=== PATIENT | female | born 1975 | race Caucasian/White ===

== ENCOUNTER 2023-07-03 02:38 | Emergency (ER) | payer MEDICAID, SELFPAY ==
[2023-07-03 02:39] VITALS: BP 152/108; PULSE 100; RESP 18; TEMP 36.6; O2SAT 96; BMI 29.0
--- NOTE | 2023-07-03 03:06 | XRR_ITS ---
PROCEDURE INFORMATION: Exam: XR Abdomen Exam date and time: 07/03/2023 3:14 AM Age: 47 years old Clinical indication: Abdominal pain; Localized; Patient HX: Lower abd pain- pain to ovaries according to patient; Additional info: Abd pain, constipation TECHNIQUE: Imaging protocol: Radiologic exam of the abdomen. Views: Frontal supine view of the abdomen. 1 View. COMPARISON: CR (CHEST, ) 07/03/2023 3:10 AM FINDINGS: Gastrointestinal tract: Normal. No bowel dilation. Bones/joints: Unremarkable. XR/XR abdomen 1V* [id number] IMPRESSION: No acute findings.
--- NOTE | 2023-07-03 03:06 | XRR_ITS ---
PROCEDURE INFORMATION: Exam: XR Chest Exam date and time: 07/03/2023 3:10 AM Age: 47 years old Clinical indication: Chest wall pain; Patient HX: Anterior middle chest pain TECHNIQUE: Imaging protocol: Radiologic exam of the chest. Views: 1 view. COMPARISON: No relevant prior studies available. FINDINGS: Lungs: Unremarkable. No consolidation. Pleural spaces: Unremarkable. No pleural effusion. No pneumothorax. Heart/Mediastinum: Unremarkable. No cardiomegaly. Bones/joints: Unremarkable. XR/XR chest 1V portable [id number] IMPRESSION: No acute findings.
[2023-07-03 03:11] VITALS: BP 150/128; PULSE 101; RESP 18; O2SAT 97
[2023-07-03 03:13] LABS: Basophils % 0.4 %; Eosinophils # 0.1 10^3/uL (0.0-0.8); Hematocrit 40.2 % (36-47); Lymphocytes # 2.5 10^3/uL (0.8-4.8); Lymphocytes % 24.7 %; Mean Corpuscular HGB Conc 31.3 g/dL (30-55); Mean Corpuscular Hemoglobin 26.5 pg (27-33); Mean Corpuscular Volume 84.5 fl (85-98); Mean Platelet Volume 10.6 fL (7.4-10.4); Monocytes # 0.8 10^3/uL (0.2-0.9); Monocytes % 7.9 %; Neutrophils # 6.66 10^3/uL (1.8-7.7); Neutrophils % 65.6 %; Nucleated Red Blood Cells % 0 %; Platelet Count 363 10^3/cmm (157-399); Red Blood Count 4.76 10^6/uL (3.85-5.65); Red Cell Distribution Width 14.7 % (12.1-15.1); White Blood Count 10.15 10^3/uL (3.29-11.43)
--- NOTE | 2023-07-03 03:13 | W.ED.GENADLT ---
HPI - General Adult General: Chief complaint: General Medical Stated complaint: CP Time Seen by Provider: 07/03/23 02:43 History of Present Illness: Patient presents to the ER with complaints of chest pain. Patient started new medicine called hydroxyzine about 3 days ago. This met when that same time the chest pain started. Chest pain is worsened when she takes a big deep breath and radiates into her back. Patient denies any nausea vomiting diaphoresis shortness of breath etc. Review of Systems General: Reports: 10 or more systems reviewed and unremarkable except in HPI and below [facility] ED Female Reproductive History: Date of last menstrual period: 06/19/23 Physical Exam Const: COMMON NORMALS: no acute distress, average body habitus, patient oriented x3, no limitations, healthy appearing, alert and well nourished HENMT: COMMON NORMALS: normocephalic, atraumatic, hearing grossly normal bilaterally, external ears normal, Normal external nose present and moist oral mucous membranes HEAD & SCALP: normocephalic and atraumatic NOSE: Normal external nose present EXTERNAL EAR: Yes external ears normal Eye: COMMON NORMALS: Equal, round and reactive pupils present, EOMs intact bilaterally, conjunctivae normal and no scleral icterus CONJUNCTIVA: Yes conjunctivae normal PUPIL: Yes Equal, round and reactive pupils present Neck/C-Spine: COMMON NORMALS: no JVD Chest: COMMONS NORMALS: normal inspection of the chest and normal palpation of entire chest wall Resp: COMMON NORMALS: normal respiratory effort, No retractions, No use of accessory muscles and clear to auscultation bilaterally AUSCULTATION: clear to auscultation bilaterally Cardio: COMMON NORMALS: no JVD, regular rate, regular rhythm, S1 normal heart sound present, S2 normal heart sound present, No gallops present (Cardio), No clicks present (Cardio), No murmurs present (Cardio) and No rub (Cardio) RATE: regular rate RHYTHM: regular rhythm HEART SOUNDS: S1 normal heart sound present and S2 normal heart sound present GI: COMMON NORMALS: Normal to inspection, nondistended, normoactive bowel sounds present, Soft to palpation, non-tender, No hepatosplenomegaly present and no masses PALPATION: Yes Soft to palpation and Yes No hepatosplenomegaly present : COMMON NORMALS: Yes no CVA tenderness BLADDER/KIDNEY EXAM: Yes no CVA tenderness Back/Pelvis: COMMON NORMALS: no CVA tenderness Neuro: COMMON NORMALS: patient oriented x3 SENSORIUM/ORIENTATION: Yes alert Course Vital Signs: Vital signs: Vital Signs Temperature 97.9 F 07/03/23 02:39 Pulse Rate 77 07/03/23 04:23 Respiratory Rate 16 07/03/23 04:23 Blood Pressure 162/113 07/03/23 04:23 Pulse Oximetry 95 07/03/23 04:23 Oxygen Delivery Me thod Room Air 07/03/23 03:11 MDM - General Adult Medical Decision Making Patient presents to the ER with complaints of chest pain and thinks she may be having a reaction to the medicine she took. Patient also has a history of atrial flutter. Patient was worked up in normal standard chest pain fashion with lab work, chest x-ray, and EKG, all of which were benign. Patient also complained of abdominal pain and she had a abdominal x-ray which was negative. Patient be discharged home with findings of abdominal pain and chest pain noncardiac in nature. Differential Diagnosis Medicine reaction, chest pain, upper respiratory infection, cough Medical Records I reviewed the patient's medical records. Lab Data I reviewed the patient's lab results. 07/03/23 03:00 07/03/23 03:00 Radiology Impressions Abdomen X-Ray 07/03/23 03:06 IMPRESSION: No acute findings. Chest X-Ray 07/03/23 03:06 IMPRESSION: No acute findings. Laboratory Results WBC 10.15 10^3/uL (3.29-11.43) 07/03/23 03:00 RBC 4.76 10^6/uL (3.85-5.65) 07/03/23 03:00 Hgb 12.60 g/dL (11.27-16.99) 07/03/23 03:00 Hct 40.2 % (36-47) 07/03/23 03:00 MCV 84.5 fl (85-98) L 07/03/23 03:00 MCH 26.5 pg (27-33) L 07/03/23 03:00 MCHC 31.3 g/dL (30-55) 07/03/23 03:00 RDW 14.7 % (12.1-15.1) 07/03/23 03:00 Plt Count 363 10^3/cmm (157-399) 07/03/23 03:00 MPV 10.6 fL (7.4-10.4) H 07/03/23 03:00 Neut % (Auto) 65.6 % 07/03/23 03:00 Lymph % (Auto) 24.7 % 07/03/23 03:00 Wilkin % (Auto) 7.9 % 07/03/23 03:00 Eos % (Auto) 1.0 % 07/03/23 03:00 Baso % (Auto) 0.4 % 07/03/23 03:00 Neut # (Auto) 6.66 10^3/uL (1.8-7.7) 07/03/23 03:00 Lymph # (Auto) 2.5 10^3/uL (0.8-4.8) 07/03/23 03:00 Wilkin # (Auto) 0.8 10^3/uL (0.2-0.9) 07/03/23 03:00 Eos # (Auto) 0.1 10^3/uL (0.0-0.8) 07/03/23 03:00 Baso # (Auto) 0.0 10^3/uL (0.0-0.1) 07/03/23 03:00 Nucleated RBC % (auto) 0 % 07/03/23 03:00 Nucleated RBCs # 0.0 /100WBC 07/03/23 03:00 Sodium 137 mmol/L (136-145) 07/03/23 03:00 Potassium 3.7 mmol/L (3.5-5.1) 07/03/23 03:00 Chloride 101 mmol/L (98-107) 07/03/23 03:00 Carbon Dioxide 28 mmol/L (22-29) 07/03/23 03:00 Anion Gap 11.7 (5-19) 07/03/23 03:00 BUN 9 mg/dL (6-20) 07/03/23 03:00 Creatinine 0.9 mg/dL (0.5-0.9) 07/03/23 03:00 GFR Calculation 67.7 mL/min (90-130) L 07/03/23 03:00 Glucose 179 mg/dL (65-115) H 07/03/23 03:00 Calculated Osmolality 287 mOsm/kg (285-295) 07/03/23 03:00 Calcium 9.4 mg/dL (8.5-10.5) 07/03/23 03:00 Magnesium 1.9 mg/dL (1.7-2.3) 07/03/23 03:00 Total Bilirubin 0.2 mg/dL (0.15-1.2) 07/03/23 03:00 AST 19 U/L (0-32) 07/03/23 03:00 ALT 31 U/L (0-33) 07/03/23 03:00 Alkaline Phosphatase 114 U/L (35-105) H 07/03/23 03:00 Troponin T Baseline 7 ng/L (0-10) 07/03/23 03:00 Total Protein 7.5 g/dL (6.6-8.7) 07/03/23 03:00 Albumin 4.0 g/dL (3.5-5.2) 07/03/23 03:00 Globulin 3.5 g/dL (1.3-4.6) 07/03/23 03:00 Urine Color Colorless (Yellow) 07/03/23 03:04 Urine Appearance Clear (CLEAR) 07/03/23 03:04 Urine pH 5 (5-7) 07/03/23 03:04 Ur Specific [place] 1.005 (1.005-1.030) 07/03/23 03:04 Urine Protein Neg (Negative) 07/03/23 03:04 Urine Glucose (UA) Trace (Normal) H 07/03/23 03:04 Urine Ketones Negative (Negative) 07/03/23 03:04 Urine Blood Neg (Negative) 07/03/23 03:04 Urine Nitrate Negative (Negative) 07/03/23 03:04 Urine Bilirubin Neg (Negative) 07/03/23 03:04 Urine Urobilinogen Neg mg/dL (Negative) 07/03/23 03:04 Ur Leukocyte Esterase Negative (Negative) 07/03/23 03:04 All radiology interpretation(s) finalized by discharge EKG Data EKG 1: I personally reviewed and interpreted this EKG as follows: EKG interpretation date: 07/03/23 EKG interpretation time: 02:48 Prior EKG tracings: not available for review Interpretation: EKG showed ventricular rate 90 bpm, OK interval 173, QRS duration 95, QTc of 394, sinus rhythm, incomplete right bundle branch block, left anterior fascicular block, Computer generated interpretation: Abdomen X-Ray 07/03/23 03:06 IMPRESSION: No acute findings. Chest X-Ray 07/03/23 03:06 IMPRESSION: No acute findings. Discharge Plan Discharge Patient Disposition: Home Clinical Impression: Chest pain, non-cardiac Abdominal pain Qualifiers: Abdominal location: unspecified location Qualified Code(s): R10.9 - Unspecified abdominal pain Condition: Stable Discharge Orders: Discharge ED (Routine); Ordered 07/03/23 Ordered By: Brandan Cast Referrals: Zac Brannon [Primary Care Provider] - 1 week Patient Instructions: Chest Pain (ED), Abdominal Pain (ED) Activity Restrictions/Additional Instructions: Please follow-up with your family practice physician in the next 7 to 10 days or sooner as needed for further evaluation and treatment. Coding Level of Care Code ED E Learning Designer for Jordan De Paz
[2023-07-03 03:22] LABS: Add Urine Microscopic? NO; Charge for UA Resulting for Rev
[2023-07-03 03:24] LABS: Bilirubin Urine Neg (Negative); Blood Urine Neg (Negative); Glucose Urine UA Trace (Normal); Ketones Urine Negative (Negative); Leukocyte Esterase Urine Negative (Negative); Nitrate Urine Negative (Negative); Protein Urine Neg (Negative); Specific Gravity, Urine 1.005 (1.005-1.030); Urine Appearance Clear (CLEAR); Urine Color Colorless (Yellow); Urobilinogen Urine Neg (Negative); pH Urine 5 (5-7)
[2023-07-03 03:30] LABS: Troponin(5th) Baseline 7 ng/L (0-10)
[2023-07-03 03:33] LABS: Alanine Aminotransferase 31 U/L (0-33); Alkaline Phosphatase 114 U/L (35-105); Anion Gap 11.7 (5-19); Aspartate Amino Transferase 19 U/L (0-32); Blood Urea Nitrogen 9 mg/dL (6-20); Calcium 9.4 mg/dL (8.5-10.5); Carbon Dioxide 28 mmol/L (22-29); Chloride 101 mmol/L (98-107); Globulin 3.5 g/dL (1.3-4.6); Glomerular Filtration Rate 67.7 mL/min (90-130); Glucose 179 mg/dL (65-115); Magnesium 1.9 mg/dL (1.7-2.3); Osmolality Calculated 287 mOsm/kg (285-295); Potassium 3.7 mmol/L (3.5-5.1); Sodium 137 mmol/L (136-145); Total Bilirubin 0.2 mg/dL (0.15-1.2); Total Protein 7.5 g/dL (6.6-8.7)
[2023-07-03 04:23] VITALS: BP 162/113; PULSE 77; RESP 16; O2SAT 95
[2023-07-03 05:06] VITALS: BP 162/113; PULSE 77; RESP 16; TEMP 36.6; O2SAT 95
--- NOTE | 2023-07-03 09:06 | ECG_ITS ---
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 Measurements Intervals [place] Rate: 90 P: 37 ND: 173 QRS: -72 QRSD: 95 T: 14 QT: 346 QTc: 425 Interpretive Statements SINUS RHYTHM LOW QRS VOLTAGE IN PRECORDIAL LEADS [QRS DEFLECTION < 1.0 mV IN CHEST LEADS] S1-S2-S3 PATTERN, CONSISTENT WITH PULMONARY DISEASE, RVH, OR NORMAL VARIANT INCOMPLETE RIGHT BUNDLE BRANCH BLOCK [90+ ms QRS DURATION, TERMINAL R IN V1/V2, 40+ ms S IN I/aVL/V4/V5/V6] LEFT ANTERIOR FASCICULAR BLOCK [QRS AXIS <= -45, QR IN I, RS IN II] POSSIBLE ANTERIOR MYOCARDIAL INFARCTION , PROBABLY OLD [30 ms Q WAVE IN V3/V4, OR R < 0.2 mV IN V4] No previous ECG available for comparison Electronically Signed On 07-03-2023 9:21:11 CDT by Keenan Dennison M.D. [id number]
== END 2023-07-03 05:07 | disposition home or self-care (01) ==
PROVIDERS: Emergency Provider Emergency Medicine; PCP Family Medicine
DX: R10.9 Unspecified abdominal pain (principal); R07.89 Other chest pain
CPT/HCPCS: 71045; 74018; 80053; 81003; 83735; 84484; 85025; 93005; 99285

== ENCOUNTER 2023-07-15 02:20 | Emergency (ER) | payer MEDICAID, SELFPAY ==
[2023-07-15] VITALS (7 sets, daily range): BP systolic 149–174; BP diastolic 99–112; PULSE 77–86; RESP 17–30; TEMP 36.9; O2SAT 95–98; BMI 37.1
--- NOTE | 2023-07-15 02:28 | XRR_ITS ---
PROCEDURE INFORMATION: Exam: XR Chest Exam date and time: 07/15/2023 2:37 AM Age: 47 years old Clinical indication: Pain; Chest pressure; Additional info: Cp TECHNIQUE: Imaging protocol: Radiologic exam of the chest. Views: 1 view. COMPARISON: CR (CHEST, ) 07/03/2023 3:10 AM FINDINGS: Lungs: Unremarkable. No consolidation. Pleural spaces: Unremarkable. No pleural effusion. No pneumothorax. Heart/Mediastinum: Unremarkable. No cardiomegaly. Bones/joints: Unremarkable. XR/XR chest 1V portable [id number] IMPRESSION: No acute findings.
--- NOTE | 2023-07-15 02:28 | ECG_ITS ---
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 Measurements Intervals [place] Rate: 80 P: 31 MA: 168 QRS: -61 QRSD: 97 T: 10 QT: 378 QTc: 438 Interpretive Statements SINUS RHYTHM LEFT ANTERIOR FASCICULAR BLOCK [QRS AXIS <= -45, QR IN I, RS IN II] POSSIBLE ANTERIOR MYOCARDIAL INFARCTION , PROBABLY OLD [30 ms Q WAVE IN V3/V4, OR R < 0.2 mV IN V4] Compared to ECG 07/03/2023 02:48:25 Right ventricular hypertrophy no longer present Incomplete right bundle-branch block no longer present Myocardial infarct finding still present Electronically Signed On 07-15-2023 11:09:02 CDT by Keenan Dennison M.D. [id number]
[2023-07-15 02:43] LABS: Basophils % 0.4 %; Eosinophils # 0.1 10^3/uL (0.0-0.8); Eosinophils % 0.7 %; Hematocrit 37.5 % (36-47); Lymphocytes % 29.5 %; Mean Corpuscular HGB Conc 31.5 g/dL (30-55); Mean Corpuscular Hemoglobin 25.7 pg (27-33); Mean Corpuscular Volume 81.7 fl (85-98); Mean Platelet Volume 10.7 fL (7.4-10.4); Monocytes # 0.8 10^3/uL (0.2-0.9); Monocytes % 8.2 %; Neutrophils # 6.27 10^3/uL (1.8-7.7); Neutrophils % 60.9 %; Nucleated Red Blood Cells % 0 %; Platelet Count 361 10^3/cmm (157-399); Red Blood Count 4.59 10^6/uL (3.85-5.65); Red Cell Distribution Width 14.6 % (12.1-15.1); White Blood Count 10.28 10^3/uL (3.29-11.43)
[2023-07-15 03:07] LABS: Troponin(5th) Baseline < 6 ng/L (0-10)
[2023-07-15 03:19] LABS: Alanine Aminotransferase 26 U/L (0-33); Albumin Level 4.1 g/dL (3.5-5.2); Alkaline Phosphatase 119 U/L (35-105); Anion Gap 13.5 (5-19); Aspartate Amino Transferase 14 U/L (0-32); Blood Urea Nitrogen 12 mg/dL (6-20); Carbon Dioxide 27 mmol/L (22-29); Chloride 100 mmol/L (98-107); Globulin 2.8 g/dL (1.3-4.6); Glomerular Filtration Rate 67.7 mL/min (90-130); Glucose 128 mg/dL (65-115); Lipase 59 U/L (13-60); NT Pro B Type Natriuretic Pept 51 pg/mL (0-125); Osmolality Calculated 285 mOsm/kg (285-295); Potassium 3.5 mmol/L (3.5-5.1); Sodium 137 mmol/L (136-145); Total Bilirubin 0.3 mg/dL (0.15-1.2); Total Protein 6.9 g/dL (6.6-8.7)
[2023-07-15] MEDS: lidocaine 2% viscous 15 ML, aluminum-mag hydrox-simethicon 30 ML, sucralfate oral liq 1 GM PO (04:00)
[2023-07-15] MEDS: LORazepam 2 mg/mL INJ 1 mL 1 MG IVP (04:28)
--- NOTE | 2023-07-15 04:28 | ED_ITS ---
HPI - Chest Pain General: Chief Complaint: Chest Pain Stated Complaint: CP Time Seen by Provider: 07/15/23 02:26 History of Present Illness: 47-year-old female with no prior history of coronary disease. She was seen here 10 days ago with similar complaints of chest discomfort. She points to the left side of her chest. She notes that it hurts worse to take a deep breath in. She describes some shortness of breath and nausea. She does have a history of acid reflux for which she takes medicine, but this pain feels somewhat different. She denies significant cough or fever. Associated symptoms: Reports abdominal pain, dyspnea and nausea; Deny fever(s) or palpitations Review of Systems Const: Denies: fever(s) Card: Reports: chest pain; Denies: palpitations Resp: Reports: dyspnea; Denies: productive cough or non-productive cough GI: Reports: abdominal pain and nausea : Reports: difficulty voiding and dysuria Skin/Breast: Denies: rash Psych: Reports: anxiety Physical Exam Const: GENERAL APPEARANCE: anxious; not ill appearing and not frail appearing HENMT: COMMON NORMALS: normocephalic, atraumatic and Normal external nose present HEAD & SCALP: normocephalic and atraumatic FACE & SINUS: normal facial exam and face symmetric NOSE: Normal external nose present Eye: COMMON NORMALS: Equal, round and reactive pupils present and EOMs intact bilaterally PUPIL: Yes Equal, round and reactive pupils present Neck/C-Spine: GENERAL: Yes trachea midline Chest: CHEST: Yes Symmetrical chest wall rise and Yes tenderness (left anterior chest) Resp: COMMON NORMALS: normal respiratory effort, No retractions, No use of accessory muscles and clear to auscultation bilaterally AUSCULTATION: clear to auscultation bilaterally Cardio: COMMON NORMALS: regular rate and regular rhythm RATE: regular rate RHYTHM: regular rhythm GI: COMMON NORMALS: Normal to inspection, nondistended, normoactive bowel sounds present Extremity: COMMON NORMALS: no pedal edema Neuro: KARYNA COMA SCALE: document GCS findings Randolph coma scale eye opening: Spontaneous Randolph coma scale verbal response: Orientated Randolph coma scale motor response: Obey commands Karyna coma scale total score: 15 SENSORY EXAM: Yes extremities (intact) Psych: COMMON NORMALS: speech normal SPEECH: Yes normal speech Skin: COMMON NORMALS: no rashes or lesions noted GENERAL SKIN EXAM: no rashes or lesions noted Course Vital Signs: Vital signs: Vital Signs Temperature 98.5 F 07/15/23 02:24 Pulse Rate 82 07/15/23 04:30 Respiratory Rate 23 H 07/15/23 04:30 Blood Pressure 174/103 07/15/23 04:30 Pulse Oximetry 98 07/15/23 04:30 Oxygen Delivery Me thod Room Air 07/15/23 04:30 MDM - Chest Pain Medical Decision Making Patient has reproducible left-sided chest discomfort. Her EKG shows a sinus rhythm with left anterior fascicular block, normal axis, normal intervals otherwise, rate of 75, and no ST wave changes. First troponin is nondetectable. BNP is normal. Other laboratory is not remarkable. Chest x-ray is negative. This lady was given a GI cocktail, and immediately after taking 2 small sips, felt like her throat was closing. This sensation soon passed, and was likely due to lidocaine. The patient had not had a GI cocktail before. She was rather anxious, and was given lorazepam with improvement in her anxiety and chest discomfort. Discomfort is reproducible. Second troponin is in the lab. Second troponin remains normal. Patient does have a urinary tract infection with hematuria. On further interview, hematuria is from menstrual bleeding. We will treat the UTI. Lab Data 07/15/23 02:38 07/15/23 02:38 Radiology Impressions Chest X-Ray 07/15/23 02:28 IMPRESSION: No acute findings. Laboratory Results WBC 10.28 10^3/uL (3.29-11.43) 07/15/23 02:38 RBC 4.59 10^6/uL (3.85-5.65) 07/15/23 02:38 Hgb 11.80 g/dL (11.27-16.99) 07/15/23 02:38 Hct 37.5 % (36-47) 07/15/23 02:38 MCV 81.7 fl (85-98) L 07/15/23 02:38 MCH 25.7 pg (27-33) L 07/15/23 02:38 MCHC 31.5 g/dL (30-55) 07/15/23 02:38 RDW 14.6 % (12.1-15.1) 07/15/23 02:38 Plt Count 361 10^3/cmm (157-399) 07/15/23 02:38 MPV 10.7 fL (7.4-10.4) H 07/15/23 02:38 Neut % (Auto) 60.9 % 07/15/23 02:38 Lymph % (Auto) 29.5 % 07/15/23 02:38 [place] % (Auto) 8.2 % 07/15/23 02:38 Eos % (Auto) 0.7 % 07/15/23 02:38 Baso % (Auto) 0.4 % 07/15/23 02:38 Neut # (Auto) 6.27 10^3/uL (1.8-7.7) 07/15/23 02:38 Lymph # (Auto) 3.0 10^3/uL (0.8-4.8) 07/15/23 02:38 [place] # (Auto) 0.8 10^3/uL (0.2-0.9) 07/15/23 02:38 Eos # (Auto) 0.1 10^3/uL (0.0-0.8) 07/15/23 02:38 Baso # (Auto) 0.0 10^3/uL (0.0-0.1) 07/15/23 02:38 Nucleated RBC % (auto) 0 % 07/15/23 02:38 Nucleated RBCs # 0.0 /100WBC 07/15/23 02:38 Sodium 137 mmol/L (136-145) 07/15/23 02:38 Potassium 3.5 mmol/L (3.5-5.1) 07/15/23 02:38 Chloride 100 mmol/L (98-107) 07/15/23 02:38 Carbon Dioxide 27 mmol/L (22-29) 07/15/23 02:38 Anion Gap 13.5 (5-19) 07/15/23 02:38 BUN 12 mg/dL (6-20) 07/15/23 02:38 Creatinine 0.9 mg/dL (0.5-0.9) 07/15/23 02:38 GFR Calculation 67.7 mL/min (90-130) L 07/15/23 02:38 Glucose 128 mg/dL (65-115) H 07/15/23 02:38 Calculated Osmolality 285 mOsm/kg (285-295) 07/15/23 02:38 Calcium 9.0 mg/dL (8.5-10.5) 07/15/23 02:38 Total Bilirubin 0.3 mg/dL (0.15-1.2) 07/15/23 02:38 AST 14 U/L (0-32) 07/15/23 02:38 ALT 26 U/L (0-33) 07/15/23 02:38 Alkaline Phosphatase 119 U/L (35-105) H 07/15/23 02:38 Troponin T Baseline < 6 ng/L (0-10) 07/15/23 02:38 Troponin T 120 Minute 7.17 ng/L (0-10) 07/15/23 04:28 Delta Troponin T 1.60124 ABS# (0-10) 07/15/23 04:28 NT-Pro-B Natriuret Pep 51 pg/mL (0-125) 07/15/23 02:38 Total Protein 6.9 g/dL (6.6-8.7) 07/15/23 02:38 Albumin 4.1 g/dL (3.5-5.2) 07/15/23 02:38 Globulin 2.8 g/dL (1.3-4.6) 07/15/23 02:38 Lipase 59 U/L (13-60) 07/15/23 02:38 Urine Color Yellow (Yellow) 07/15/23 04:40 Urine Appearance Hazy (CLEAR) A 07/15/23 04:40 Urine pH 7 (5-7) 07/15/23 04:40 Ur Specific [place] 1.005 (1.005-1.030) 07/15/23 04:40 Urine Protein Trace (Negative) 07/15/23 04:40 Urine Glucose (UA) Norm (Normal) 07/15/23 04:40 Urine Ketones Negative (Negative) 07/15/23 04:40 Urine Blood 3+ (Negative) H 07/15/23 04:40 Urine Nitrate Positive (Negative) H 07/15/23 04:40 Urine Bilirubin Neg (Negative) 07/15/23 04:40 Urine Urobilinogen Neg mg/dL (Negative) 07/15/23 04:40 Ur Leukocyte Esterase 1+ (Negative) H 07/15/23 04:40 Urine RBC >100 /hpf (0-2) H 07/15/23 04:40 Urine WBC 0-4 /hpf (0-5) H 07/15/23 04:40 Ur Squamous Epith Cells Rare /hpf (0-5) 07/15/23 04:40 Amorphous Sediment Not Reportable 07/15/23 04:40 Urine Bacteria 2+ /hpf (NONE) H 07/15/23 04:40 All radiology interpretation(s) finalized by discharge Discharge Plan Discharge Patient Disposition: Home Clinical Impression: Chest pain, UTI (urinary tract infection) Condition: Stable Prescriptions: New hydroxyzine HCl 25 mg tablet 12.5 mg PO BID Qty: 30 0RF Bactrim DS 800-160 mg tablet 1 tab PO BID 7 Days Qty: 14 0RF Discharge Orders: Discharge ED (Routine); Ordered 07/15/23 Ordered By: Beto Polo Referrals: Yobany Brannon DO [Primary Care Provider] - 1-3 days Patient Instructions: Chest Pain (ED), Chest Wall Pain (ED), Opioid Safety, Pain Management Activity Restrictions/Additional Instructions: Medications as directed. Return for worsening pain despite treatment, vomiting liquids or medications, fever, other concerning symptoms. See your doctor this week. Coding Level of Care Code ED Toy Mechanic for Jordan De Paz
--- NOTE | 2023-07-15 04:41 | ECG_ITS ---
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 Measurements Intervals [place] Rate: 77 P: 35 ME: 174 QRS: -60 QRSD: 96 T: 6 QT: 385 QTc: 437 Interpretive Statements SINUS RHYTHM LEFT ANTERIOR FASCICULAR BLOCK [QRS AXIS <= -45, QR IN I, RS IN II] POSSIBLE ANTERIOR MYOCARDIAL INFARCTION , PROBABLY OLD [30 ms Q WAVE IN V3/V4, OR R < 0.2 mV IN V4] Compared to ECG 07/15/2023 02:26:25 No significant changes Electronically Signed On 07-15-2023 11:11:27 CDT by Keenan Dennison M.D. [id number]
[2023-07-15 05:14] LABS: Troponin 5 2HR 7.17 ng/L (0-10); Troponin 5 2HR Delta 1.17001 ABS# (0-10)
[2023-07-15 05:19] LABS: Bilirubin Urine Neg (Negative); Blood Urine 3+ (Negative); Glucose Urine UA Norm (Normal); Ketones Urine Negative (Negative); Nitrate Urine Positive (Negative); Protein Urine Trace (Negative); Specific Gravity, Urine 1.005 (1.005-1.030); Urine Appearance Hazy (CLEAR); Urine Color Yellow (Yellow); pH Urine 7 (5-7)
[2023-07-15 05:20] LABS: Add Urine Culture? Yes; Add Urine Microscopic? YES; Bacteria Urine 2+ /hpf; Leukocyte Esterase Urine 1+ (Negative); RBC Urine >100 /hpf (0-2); Squamous Epithelial Cell Urine RARE /hpf (0-5); Urobilinogen Urine Neg (Negative); WBC Urine 0-4 /hpf (0-5)
[2023-07-15] MEDS: sulfamethoxazole-trimeth DS 160-800 mg Tablet 1 TAB PO (05:43)
== END 2023-07-15 05:45 | disposition home or self-care (01) ==
PROVIDERS: Emergency Provider Emergency Medicine; PCP Family Medicine
DX: R07.9 Chest pain, unspecified (principal); N39.0 Urinary tract infection, site not specified
CPT/HCPCS: 36415; 71045; 80053; 81001; 83690; 83880; 84484; 85025; 87077; 87086; 87186; 93005; 96374; 99285; J2060

== ENCOUNTER 2024-12-31 23:34 | Emergency (ER) | payer BC, MEDICAID, SELFPAY ==
[2024-12-31 23:35] VITALS: BP 168/92; PULSE 104; RESP 18; TEMP 36.7; O2SAT 99; BMI 35.5
[2025-01-01 00:19] LABS: Basophils # 0.1 10^3/uL (0.0-0.1); Basophils % 0.5 %; Eosinophils # 0.1 10^3/uL (0.0-0.8); Eosinophils % 0.5 %; Hematocrit 39.7 % (36-47); Lymphocytes # 2.2 10^3/uL (0.8-4.8); Lymphocytes % 20.3 %; Mean Corpuscular HGB Conc 30.7 g/dL (30-55); Mean Corpuscular Hemoglobin 25.7 pg (27-33); Mean Corpuscular Volume 83.8 fl (85-98); Monocytes # 0.9 10^3/uL (0.2-0.9); Monocytes % 7.8 %; Neutrophils # 7.66 10^3/uL (1.8-7.7); Neutrophils % 70.5 %; Nucleated Red Blood Cells % 0 %; Platelet Count 358 10^3/cmm (157-399); Red Blood Count 4.74 10^6/uL (3.85-5.65); Red Cell Distribution Width 15.3 % (12.1-15.1); White Blood Count 10.86 10^3/uL (3.29-11.43)
[2025-01-01 00:25] VITALS: BP 147/95; PULSE 95; RESP 16; O2SAT 97
[2025-01-01] MEDS: meclizine 25 mg tablet PO (00:28)
[2025-01-01 00:40] LABS: Anion Gap 14.9 (5-19); Blood Urea Nitrogen 8 mg/dL (6-20); Calcium 9.1 mg/dL (8.5-10.5); Carbon Dioxide 23 mmol/L (22-29); Chloride 102 mmol/L (98-107); Creatinine Clr Calc Pharmacy 118.4119; Glomerular Filtration Rate 89.7 mL/min (90-130); Glucose 152 mg/dL (65-115); Osmolality Calculated 283 mOsm/kg (285-295); Potassium 3.9 mmol/L (3.5-5.1); Sodium 136 mmol/L (136-145)
--- NOTE | 2025-01-01 01:00 | PC.NURSE ---
PROVIDER MADE AWARE OF BP, VERBALIZED IT WAS OKAY FOR PT TO BE D/C.
[2025-01-01 01:11] VITALS: BP 139/102; PULSE 98; RESP 16; O2SAT 99
--- NOTE | 2025-01-01 02:35 | ED_ITS ---
HPI - Dizziness 2 General: Chief Complaint: Dizziness Stated Complaint: Dizzy,N/V Time Seen by Provider: 12/31/24 23:44 History of Present Illness: HPI Narrative: This patient is a 49-year-old white female who presents to the emergency department complaining of dizziness which she describes as a spinning sensation. He has been vomiting with these episodes as well. Symptoms started 2 days ago. Worse when she opens her eyes or turns her head. Related Data Previous Rx's ?Medication ?Instructions ?Recorded hydroxyzine HCl 25 mg tablet 12.5 mg (1/2 x 25 mg) PO BID #30 07/15/23 tabs meclizine 25 mg tablet 25 mg PO TID PRN dizziness # 30 tabs 01/01/25 Allergies Allergy/AdvReac Type Severity Reaction Status Date / Time aspirin Allergy Unknown Verified 07/03/23 02:47 barium iodide Allergy Unknown Verified 07/03/23 02:47 latex Allergy Unknown Verified 07/03/23 02:47 naproxen Allergy Unknown Verified 07/03/23 02:47 terbutaline (From Bre[facility]ine) Allergy Unknown Verified 07/03/23 02:47 iv contrast Allergy Unknown Uncoded 07/03/23 02:47 Review of Systems 2 General: Reports: 10 or more systems reviewed and unremarkable except in HPI and below Neuro: Reports: vertigo Physical Exam 2 Const: COMMON NORMALS: no acute distress, patient oriented x3 and no limitations GENERAL APPEARANCE: cooperative and comfortable HENMT: COMMON NORMALS: normocephalic, atraumatic, Normal nasal mucous membranes and turbinates present, moist oral mucous membranes and oropharynx normal HEAD & SCALP: normal to inspection, normocephalic and atraumatic F KATE & SINUS: normal facial exam NOSE: Normal nasal mucous membranes and turbinates present Eye: COMMON NORMALS: Equal, round and reactive pupils present, EOMs intact bilaterally and conjunctivae normal GENERAL EYE: appearance normal, both eyes and all related structures CONJUNCTIVA: Yes conjunctivae normal PUPIL: Yes Equal, round and reactive pupils present Neck/C-Spine: COMMON NORMALS: supple and no JVD Chest: COMMONS NORMALS: normal inspection of the chest Resp: COMMON NORMALS: normal respiratory effort and clear to auscultation bilaterally AUSCULTATION: clear to auscultation bilaterally Cardio: COMMON NORMALS: no JVD, regular rate, regular rhythm, No gallops present (Cardio), No murmurs present (Cardio) and No rub (Cardio) RATE: r egular rate RHYTHM: regular rhythm GI: COMMON NORMALS: Normal to inspection, nondistended, normoactive bowel sounds present, Soft to palpation and non-tender AUSCULTATION: Yes normoactive bowel sounds PALPATION: Yes Soft to palpation : COMMON NORMALS: Yes no CVA tenderness BLADDER/KIDNEY EXAM: Yes no CVA tenderness Back/Pelvis: COMMON NORMALS: no CVA tenderness and thoracic and lumbar spine normal to inspection Extremity: COMMON NORMALS: normal to inspection Neuro: COMMON NORMALS: patient oriented x3 and CN's II-XII intact bilaterally Psych: COMMON NORMALS: mental status grossly normal, Normal thought process present and cooperative THOUGHT PROCESS: Normal thought process present Skin: COMMON NORMALS: no rashes or lesions noted, turgor normal and no jaundice GENERAL SKIN EXAM: no rashes or lesions noted and turgor normal Course 2 Vital Signs: Vital signs: Vital Signs Temperature 98.0 F 12/31/24 23:35 Pulse Rate 98 01/01/25 01:11 Respiratory Rate 16 01/01/25 01:11 Blood Pressure 139/102 01/01/25 01:11 Pulse Oximetry 99 01/01/25 01:11 Oxygen Delivery Me thod Room Air 01/01/25 00:25 MDM - Dizziness Medical Decision Making CBC and BMP were normal. Patient was given 25 mg of meclizine p.o. Symptoms improved. She was discharged in stable condition with a prescription for meclizine. Recommended she follow-up with her primary care provider next week for recheck. Lab Data 01/01/25 00:10 01/01/25 00:10 Laboratory Results WBC 10.86 10^3/uL (3.29-11.43) 01/01/25 00:10 RBC 4.74 10^6/uL (3.85-5.65) 01/01/25 00:10 Hgb 12.20 g/dL (11.27-16.99) 01/01/25 00:10 Hct 39.7 % (36-47) 01/01/25 00:10 MCV 83.8 fl (85-98) L 01/01/25 00:10 MCH 25.7 pg (27-33) L 01/01/25 00:10 MCHC 30.7 g/dL (30-55) 01/01/25 00:10 RDW 15.3 % (12.1-15.1) H 01/01/25 00:10 Plt Count 358 10^3/cmm (157-399) 01/01/25 00:10 MPV 11.0 fL (7.4-10.4) H 01/01/25 00:10 Neut % (Auto) 70.5 % 01/01/25 00:10 Lymph % (Auto) 20.3 % 01/01/25 00:10 [place] % (Auto) 7.8 % 01/01/25 00:10 Eos % (Auto) 0.5 % 01/01/25 00:10 Baso % (Auto) 0.5 % 01/01/25 00:10 Neut # (Auto) 7.66 10^3/uL (1.8-7.7) 01/01/25 00:10 Lymph # (Auto) 2.2 10^3/uL (0.8-4.8) 01/01/25 00:10 [place] # (Auto) 0.9 10^3/uL (0.2-0.9) 01/01/25 00:10 Eos # (Auto) 0.1 10^3/uL (0.0-0.8) 01/01/25 00:10 Baso # (Auto) 0.1 10^3/uL (0.0-0.1) 01/01/25 00:10 Nucleated RBC % (auto) 0 % 01/01/25 00:10 Nucleated RBCs # 0.0 /100WBC 01/01/25 00:10 Sodium 136 mmol/L (136-145) 01/01/25 00:10 Potassium 3.9 mmol/L (3.5-5.1) 01/01/25 00:10 Chloride 102 mmol/L (98-107) 01/01/25 00:10 Carbon Dioxide 23 mmol/L (22-29) 01/01/25 00:10 Anion Gap 14.9 (5-19) 01/01/25 00:10 BUN 8 mg/dL (6-20) 01/01/25 00:10 Creatinine 0.7 mg/dL (0.5-0.9) 01/01/25 00:10 GFR Calculation 89.7 mL/min (90-130) L 01/01/25 00:10 Glucose 152 mg/dL (65-115) H 01/01/25 00:10 Calculated Osmolality 283 mOsm/kg (285-295) L 01/01/25 00:10 Calcium 9.1 mg/dL (8.5-10.5) 01/01/25 00:10 No radiology studies performed this visit Discharge Plan Discharge Patient Disposition: Home Clinical Impression: Benign paroxysmal positional vertigo Qualifiers: Laterality: unspecified laterality Qualified Code(s): H81.10 - Benign paroxysmal vertigo, unspecified ear Condition: Stable Prescriptions: New meclizine 25 mg tablet 25 mg PO TID PRN (Reason: dizziness) Qty: 30 0RF No Action hydroxyzine HCl 25 mg tablet 12.5 mg PO BID Qty: 30 0RF Discharge Orders: Discharge ED (Routine); Ordered 01/01/25 Ordered By: Israel Swanson Referrals: Yobany Brannon DO [Primary Care Provider] - Patient Instructions: Benign Paroxysmal Positional Vertigo (DC) Print Language: Dominican Coding Level of Care Code ED [employer] Th[employer] Operator for Chg Zandra
== END 2025-01-01 00:57 | disposition home or self-care (01) ==
PROVIDERS: Emergency Provider Emergency Medicine; PCP Family Medicine
DX: H81.10 Benign paroxysmal vertigo, unspecified ear (principal)
CPT/HCPCS: 36415; 80048; 85025; 99283; J8597

== ENCOUNTER 2025-01-01 02:38 | Emergency (ER) | payer BC, MEDICAID, SELFPAY ==
[2025-01-01 02:40] VITALS: BP 172/100; PULSE 107; RESP 18; TEMP 36.8; O2SAT 97; BMI 35.5
[2025-01-01 03:09] VITALS: BP 185/103; PULSE 98; O2SAT 98
--- NOTE | 2025-01-01 03:53 | W.ED.DIZZY ---
HPI - Dizziness General: Chief Complaint: Dizziness Stated Complaint: Dizzy\Anxiety Time Seen by Provider: 01/01/25 03:51 History of Present Illness: HPI Narrative: I just saw this patient about 2 hours ago. Diagnosed with vertigo. She was given meclizine and prescribed meclizine. She was waiting for Medicaid ride out in the waiting room and checked backend. Same symptoms. Related Data Previous Rx's ?Medication ?Instructions ?Recorded hydroxyzine HCl 25 mg tablet 12.5 mg (1/2 x 25 mg) PO BID #30 07/15/23 tabs meclizine 25 mg tablet 25 mg PO TID PRN dizziness #30 tabs 01/01/25 Allergies Allergy/AdvReac Type Severity Reaction Status Date / Time aspirin Allergy Unknown Verified 07/03/23 02:47 barium iodide Allergy Unknown Verified 07/03/23 02:47 latex Allergy Unknown Verified 07/03/23 02:47 naproxen Allergy Unknown Verified 07/03/23 02:47 terbutaline (From Brethine) Allergy Unknown Verified 07/03/23 02:47 iv contrast Allergy Unknown Uncoded 07/03/23 02:47 Review of Systems General: Reports: 10 or more systems reviewed and unremarkable except in HPI and below Neuro: Reports: dizziness Physical Exam Const: COMMON NORMALS: no acute distress, patient oriented x3 and no limitations GENERAL APPEARANCE: cooperative and comfortable HENMT: COMMON NORMALS: normocephalic, atraumatic, Normal nasal mucous membranes and turbinates present, moist oral mucous membranes and oropharynx normal HEAD & SCALP: normal to inspection, normocephalic and atraumatic FACE & SINUS: normal facial exam NOSE: Normal nasal mucous membranes and turbinates present Eye: COMMON NORMALS: Equal, round and reactive pupils present, EOMs intact bilaterally and conjunctivae normal GENERAL EYE: appearance normal, both eyes and all related structures CONJUNCTIVA: Yes conjunctivae normal PUPIL: Yes Equal, round and reactive pupils present Neck/C-Spine: COMMON NORMALS: supple and no JVD Chest: COMMONS NORMALS: normal inspection of the chest Resp: COMMON NORMALS: normal respiratory effort and clear to auscultation bilaterally AUSCULTATION: clear to auscultation bilaterally Cardio: COMMON NORMALS: no JVD, regular rate, regular rhythm, No gallops present (Cardio), No murmurs present (Cardio) and No rub (Cardio) RATE: regular rate RHYTHM: regular rhythm GI: COMMON NORMALS: Normal to inspection, nondistended, normoactive bowel sounds present, Soft to palpation and non-tender AUSCULTATION: Yes normoactive bowel sounds PALPATION: Yes Soft to palpation : COMMON NORMALS: Yes no CVA tenderness BLADDER/KIDNEY EXAM: Yes no CVA tenderness Back/Pelvis: COMMON NORMALS: no CVA tenderness and thoracic and lumbar spine normal to inspection Extremity: COMMON NORMALS: normal to inspection Neuro: COMMON NORMALS: patient oriented x3 and CN's II-XII intact bilaterally Psych: COMMON NORMALS: mental status grossly normal, Normal thought process present and cooperative THOUGHT PROCESS: Normal thought process present Skin: COMMON NORMALS: no rashes or lesions noted, turgor normal and no jaundice GENERAL SKIN EXAM: no rashes or lesions noted and turgor normal Course Vital Signs: Vital signs: Vital Signs Temperature 98.3 F 01/01/25 02:40 Pulse Rate 98 01/01/25 03:09 Respiratory Rate 18 01/01/25 02:40 Blood Pressure 185/103 01/01/25 03:09 Pulse Oximetry 98 01/01/25 03:09 Oxygen Delivery Me thod Room Air 01/01/25 02:40 MDM - Dizziness Medical Decision Making Patient discharged again. Recommended she follow-up with her primary care provider. No radiology studies performed this visit Discharge Plan Discharge Patient Disposition: Home Clinical Impression: Benign paroxysmal positional vertigo Qualifiers: Laterality: unspecified laterality Qualified Code(s): H81.10 - Benign paroxysmal vertigo, unspecified ear Condition: Stable Prescriptions: No Action hydroxyzine HCl 25 mg tablet 12.5 mg PO BID Qty: 30 0RF meclizine 25 mg tablet 25 mg PO TID PRN (Reason: dizziness) Qty: 30 0RF Discharge Orders: Discharge ED (Routine); Ordered 01/01/25 Ordered By: Israel Swanson Referrals: Yobany Brannon DO [Primary Care Provider] - Print Language: Albanian Coding Level of Care Code ED 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
== END 2025-01-01 04:04 | disposition home or self-care (01) ==
PROVIDERS: Emergency Provider Emergency Medicine; PCP Family Medicine
DX: H81.10 Benign paroxysmal vertigo, unspecified ear (principal)
CPT/HCPCS: 99281